=== PATIENT | male | born 1980 | race Caucasian/White ===

== ENCOUNTER 2016-08-03 16:53 | Emergency (ER) | payer BC ==
--- NOTE | 2016-08-03 18:38 | ED CLINICAL REPORT ---
Clinical Report - Physicians/Mid Levels [facility] [address] [place] [address] 08/03/2016 16:57 Patient: LILIBETH PAZ Time Seen: 17:19 Aug 03 2016. Arrived- By private vehicle. Historian- patient. CPT: ER phys charges level 4 (#[id number]). HISTORY OF PRESENT ILLNESS Chief Complaint: FLANK PAIN. It is described as "pain" and it is described as located in the right flank. At its maximum, severity described as severe. When seen in the E.D., severity described as moderate. Modifying factors- (Urinating makes it worse.). Not relieved by anything. This started about 6 months on and off; Hurts to urinate and urine is blocked at times. and is still present. No nausea, loss of appetite, vomiting or diarrhea. REVIEW OF SYSTEMS No constipation, black stools, hematemesis, difficulty with urination or urinary frequency. No fever, sore throat, chest pain, difficulty breathing or cough. No joint pain, skin rash or chills. The patient has had pain on urination and back pain. All systems otherwise negative, except as recorded above. PAST HISTORY History of 2 kidney stones in the past. The first was 19 mm and the second was 21 mm. Last stone was removed by urology about a year ago. Medications: None. Allergies: None. SOCIAL HISTORY Heavy tobacco smoker (cigarette)- 1 pack per day. Alcohol use. ADDITIONAL NOTES The nursing notes have been reviewed. PHYSICAL EXAM Vital Signs: 08/03/2016 17:09 BP: 147/98. HR: 86. RR: 18. O2 saturation: 100%. Temp: 98.2 F. Pain level now: 8/10. Appearance: Alert. Appears to be in pain. Patient in mild distress. Eyes: Pupils equal, round and reactive to light. Eyes normal inspection. ENT: Ears normal. Nose normal. Pharynx normal. Neck: Normal inspection. Neck supple. CVS: Normal heart rate and rhythm. Heart sounds normal. Pulses normal. Respiratory: No respiratory distress. Breath sounds normal. Chest nontender. Abdomen: Soft and nontender. Bowel sounds normal. Back: Normal inspection. No CVA tenderness. Skin: Skin warm. Normal skin color. No rash. Extremities: Extremities exhibit normal ROM. No lower extremity edema. Neuro: Oriented X 3. No motor deficit. No sensory deficit. LABS, X-RAYS, AND EKG Abdominal CT: Large 9mm kidney stone in the prostatic urethra. Abdominal CT performed without contrast. The study was independently viewed by me, interpreted by the radiologist and discussed with the radiologist. Laboratory Tests: UA-Culture if indicated: (SOHA: 08/03/2016 00:01) ( [id number] 08/03/2016 17:33) Final results Test Result Flag Units (Reference) URINE COLOR YELLOW URINE APPEARANCE CLEAR URINE GLUCOSE NEGATIVE (NEGATIVE) URINE BILIRUBIN NEGATIVE (NEGATIVE) URINE KETONE NEGATIVE (NEGATIVE) URINE SPECIFIC GRAVITY 1.020 (1.010-1.030) URINE PH 6.5 (5.0-8.0) URINE PROTEIN TRACE (NEGATIVE) URINE UROBILINOGEN 0.2 EU/dL (0.2-1.0) URINE NITRITE NEGATIVE (NEGATIVE) URINE BLOOD 2+ (NEGATIVE) URINE LEUK ESTERASE NEGATIVE (NEGATIVE) URINE RBC 10-25 rbc/hpf (0-1) URINE WBC 3-5 wbc/hpf (0-1) URINE EPITHELIAL CELLS RARE EPI/hpf (0-5) URINE BACTERIA TRACE (<1+) (NONE SEEN) URINE COMMENT CULT NOT INDICATED URINE CULTURES ARE SET-UP BASED ON THE FOLLOWING CRITERIA:POSITIVE NITRITEPOSITIVE LEUKOCYTE ESTERASEGREATER THAN 10 WHITE BLOOD CELLSMODERATE (2+) OR GREATER BACTERIA . PROGRESS AND PROCEDURES Course of Care: The patient has a large stone caught in the prostatic urethra. This will likely pass. He will strain his urine and follow-up with urology if not passing. We will cover him with antibiotics because of trace bacteriuria. Patient/family counseled. Disposition: Discharged. CLINICAL IMPRESSION Kidney stone stuck in the prostatic urethra. Mild bacteruria. INSTRUCTIONS Drink plenty of fluids. (Strain urine). Warnings: Further evaluation is necessary. GENERAL WARNINGS: Return or contact your physician immediately if your condition worsens or changes unexpectedly, if not improving as expected, or if other problems arise. Prescription Medications: Trimethoprim-Sulfamethoxazole DS: take 1 tablet orally every 12 hours for 7 days. Dispense fourteen (14). No refills. Follow-up: Follow up with a specialist in two days if not better. Call for the next available appointment. (Electronically signed by Lilibeth Bernal MD 08/03/2016 19:12)
--- NOTE | 2016-08-03 18:38 | ED ORDER SUMMARY ---
..... Patient: LILIBETH PAZ OrderSheet [facility] VisitID: [id number] [address] [place] [address] 36y, M Registration Date/Time: 08/03/2016 ORDER SHEET Weight: 90.7 kg (stated) Allergies: None GENERAL ORDERS: UA-Culture if indicated Urgent (17:13 08/03/2016 JBoardley R.N. per protocol) (Ack 17:14 Albert) (17:18 JBoardley R.N.) CT Abd/Pel wo Cont Urgent (17:18 08/03/2016 Keo ORTIZ) (Ack 17:26 Albert) (17:37 JBoardley R.N.) Urine Strainer (18:37 08/03/2016 Keo ORTIZ) (Ack 18:39 JBoardley R.N.) (18:42 JBoardley R.N.) MEDICATION ORDERS: IV FLUIDS: ORDER SHEET NOTES: [Electronically signed by Pranay Gonzalez R.N. (18:53 08/03/2016)] [Electronically signed by Lilibeth Bernal MD (19:12 08/03/2016)] [Electronically locked/signed by Pranay Gonzalez R.N. (18:53 08/03/2016)]
--- NOTE | 2016-08-03 18:38 | ED ORDER SUMMARY ---
..... Patient: LILIBETH PAZ OrderSheet [facility] VisitID: [id number] [address] [place] [address] 36y, M Registration Date/Time: 08/03/2016 ORDER SHEET Weight: 90.7 kg (stated) Allergies: None GENERAL ORDERS: UA-Culture if indicated Urgent (17:13 08/03/2016 JBoardley R.N. per protocol) (Ack 17:14 Albert) (17:18 JBoardley R.N.) CT Abd/Pel wo Cont Urgent (17:18 08/03/2016 Keo ORTIZ) (Ack 17:26 Albert) (17:37 JBoardley R.N.) Urine Strainer (18:37 08/03/2016 Keo ORTIZ) (Ack 18:39 JBoardley R.N.) (18:42 JBoardley R.N.) MEDICATION ORDERS: IV FLUIDS: ORDER SHEET NOTES: [Electronically signed by Pranay Gonzalez R.N. (18:53 08/03/2016)] [Electronically signed by Lilibeth Bernal MD (19:12 08/03/2016)] [Electronically locked/signed by Pranay Gonzalez R.N. (18:53 08/03/2016)]
--- NOTE | 2016-08-03 18:38 | ED NURSING NOTES ---
Clinical Report - Nurses [facility] [place] [address] [place] [address] 08/03/2016 16:57 Patient: LILIBETH PAZ TRIAGE Triage time 17:09. Acuity: LEVEL 3. Chief Complaint: PAINFUL URINATION and FLANK PAIN. 17:08/03/16. 17:08/03/16. Alert. No acute distress. --17:12 Pranay Gonzalez R.N. 17:08/03/16. BP: 147/98. HR: 86. RR: 18. O2 saturation: 100% on room air. Temp: 98.2 F (oral). Pain level now: 02/18. --17:12 Pranay Gonzalez R.N. Weight: 90.7 kg stated. Height/Length: 72 inches Per Patient. BMI: 27.1. --17:10 Pranay Gonzalez R.N. Medications None. --17:11 Pranay Gonzalez R.N. Medication/allergy information source: the patient. --17:12 Pranay Gonzalez R.N. Allergies None. --17:12 Pranay Gonzalez R.N. History Arrived by private vehicle. Historian: patient. Unaccompanied. Primary physician (LILIBETH RICHARDSON). 17:08/03/16. Onset. (6 months). Treatment EDUCATIONAL TECHNOLOGY COORDINATOR: None. PAST MEDICAL HX: Immunizations not up to date. SOCIAL HX: Current every day heavy tobacco smoker- less than 1 pack per day. Occasional alcohol use; consumes three beers a week. No drug use. No recent travel. No infectious disease exposure. No known contact with a sick individual. ABUSE ASSESSMENT: No report of abuse. FALL RISK ASSESSMENT: Fall risk assessment completed. No fall risk identified. NUTRITIONAL RISK ASSESSMENT: The nutritional risk assessment revealed no deficiencies. FUNCTIONAL ASSESSMENT: Functional assessment: no impairments noted. LEARNING NEEDS ASSESSMENT: The learning needs assessment revealed no barriers. SKIN INTEGRITY ASSESSMENT: Skin integrity risk assessment completed. No skin integrity risk identified. --17:12 Pranay Gonzalez R.N. PROBLEMS: Nephrolithiasis. --17:12 Pranay Gonzalez R.N. ADDITIONAL SURGERIES: Lithotripsy. --17:12 Pranay Gonzalez R.N. Assessment 17:08/03/16. --17:12 Pranay Gonzalez R.N. Interventions 17:08/03/16. 17:08/03/16. ID and allergy band on patient. To treatment room. --17:12 Pranay Gonzalez R.N. PHYSICAL ASSESSMENT 17:08/03/16. GENERAL / NEURO / PSYCH: Alert. Oriented X 4. Appears in no acute distress. RESPIRATORY: Respirations not labored. SKIN: Skin is warm and dry. --17:12 Pranay Gonzalez R.N. NURSING PROGRESS NOTES 17:08/03/16. The plan of care for this patient has been created. Patient gowned. Head of bed elevated. Reassurance given. Two patient identifiers checked. Call light placed in reach. Side rails up x 2. Bed placed in lowest position. Brakes of bed on. Brakes of chair on. --17:12 Pranay Gonzalez R.N. 17:08/03/16. Patient ready for evaluation- chart flagged and notification provided. --17:12 Pranay Gonzalez R.N. 17:13 08/03/16. Patient ID band checked for patient name and birthdate: patient confirmed. Clean catch urine collected with return of yellow-colored urine; sample sent to lab for urinalysis and culture. Specimen labeled in the presence of the patient. --17:13 Pranay Gonzalez R.N. 17:27 08/03/16. Patient transported to CT by stretcher with tech. --17:27 Pranay Gonzalez R.N. 17:37 08/03/16. Patient returned from CT by stretcher with tech. --17:37 Pranay Gonzalez R.N. 17:37 08/03/16. Patient informed about reason for wait and about plan of care. --17:37 Pranay Gonzalez R.N. 17:37 08/03/16. Patient waiting for CT results. --17:37 Pranay Gonzalez R.N. 18:09 08/03/16. --18:09 Pranay Gonzalez R.N. 18:08 08/03/16. BP: 131/85. HR: 73. RR: 14. O2 saturation: 99% on room air. Pain level now: 11/18. --18:09 Pranay Gonzalez R.N. DISPOSITION / DISCHARGE 18:44 08/03/16. Condition at departure: improved. The goals identified in the patient's plan of care were met. ( Gave pt urine strainer and specimen cup on DC, educated on how to use. Will provide kidney stone to PCP when it passes.). No learning barriers present. Discharge instructions provided and reviewed with the patient. Reviewed warnings. Reviewed medication(s). Treatments reviewed. Patient verbalized understanding. Written instructions provided in [place]. The patient was discharged by the physician. He was discharged home. He left the Emergency Department via private vehicle. Patient driving. FALL RISK ASSESSMENT: Fall risk assessment completed. No fall risk identified. --18:44 Pranay Gonzalez R.N. 18:42 08/03/16. BP: 134/75. HR: 77. RR: 14. O2 saturation: 99% on room air. Temp: 98.2 F. --18:44 Pranay Gonzalez R.N. 18:44 08/03/16. Departure time: 18:44. --18:44 Pranay Gonzalez R.N. Locked/Released at 08/03/2016 18:53 by Pranay Gonzalez R.N.
--- NOTE | 2016-08-03 18:58 | DIAGNOSTIC IMAGING REPORT ---
PROCEDURE: CT ABDOMEN/PELVIS W/O CONTRAST INDICATION: ABDOMINAL PAIN TECHNIQUE: Noncontrast axial images were obtained of the entire abdomen and pelvis with sagittal and coronal reformations. COMPARISON: None. FINDINGS: ABDOMEN: There are several nonobstructing right renal calculi (1 - 3 mm). Mild right hydroureteronephrosis without to distal calculus, likely due to recent passage of a calculus. Normal left kidney and ureter. Normal bladder. Lung bases are clear. Heart size is normal. There are several small gallbladder wall calcifications. Liver, pancreas, spleen and adrenal glands are normal. Normal abdominal aorta appear PELVIS: Normal appendix. 1 cm central prostate dense calcification. No pelvic mass, free fluid or suspicious osseous lesions IMPRESSION: 1. Mild right hydroureteronephrosis without obstructing distal calculus. However, there is a dense central prostate calcification suspicious for a urinary calculus 2. Several nonobstructing right renal calculi 3. Gallbladder wall calcifications 4. Results discussed with Dr. Bernal All CT scans at this facility use dose modulation, iterative reconstruction, and/or weight-based dosing when appropriate to reduce radiation dose to as low as reasonably achievable.
--- NOTE | 2016-08-03 19:12 | ED DISCHARGE INSTRUCTIONS ---
Patient: LILIBETH PAZ General Instructions [facility] VisitID: [id number] [address] [place] [address] 36y, M Registration Date/Time: 08/03/2016 Kidney stone stuck in the prostatic urethra. Mild bacteruria. INSTRUCTIONS Drink plenty of fluids. (Strain urine). Warnings: Further evaluation is necessary. GENERAL WARNINGS: Return or contact your physician immediately if your condition worsens or changes unexpectedly, if not improving as expected, or if other problems arise. Prescription Medications: Trimethoprim-Sulfamethoxazole DS: take 1 tablet orally every 12 hours for 7 days. Dispense fourteen (14). No refills. Follow-up: Follow up with a specialist in two days if not better. Call for the next available appointment. (Electronically signed by Lilibeth Bernal MD 08/03/2016 19:12)
--- NOTE | 2016-08-03 19:12 | ED MAR SUMMARY ---
..... Medication Administration Record [facility] [address], [place] [id number] Patient: LILIBETH PAZ Visit ID: [id number] 36y, M Weight: 90.7 kg Height/Length: 72 in BMI: 27.1 ALLERGIES: None
--- NOTE | 2016-08-03 19:12 | ED MED RECONCILIATION SUMMARY ---
Patient: LILIBETH PAZ Medication Reconciliation Report [facility] VisitID: [id number] [address] [place] [address] 36y, M Registration Date/Time: 08/03/2016 Weight: 90.7 kg Height/Length: 72 in. BMI: 27.1 ALLERGIES: None The patient's Home Medications are listed below: NONE. The source(s) of the original Home Medication information: patient The following Medications were given to the patient in the Emergency Department: None. The following Medications were prescribed to the patient: Trimethoprim-Sulfamethoxazole DS: take 1 tablet orally every 12 hours for 7 days. Dispense fourteen (14). No refills. -- Lilibeth Bernal MD
--- NOTE | 2016-08-03 19:12 | ED MED RECONCILIATION SUMMARY ---
Patient: LILIBETH PAZ Medication Reconciliation Report [facility] VisitID: [id number] [address] [place] [address] 36y, M Registration Date/Time: 08/03/2016 Weight: 90.7 kg Height/Length: 72 in. BMI: 27.1 ALLERGIES: None The patient's Home Medications are listed below: NONE. The source(s) of the original Home Medication information: patient The following Medications were given to the patient in the Emergency Department: None. The following Medications were prescribed to the patient: Trimethoprim-Sulfamethoxazole DS: take 1 tablet orally every 12 hours for 7 days. Dispense fourteen (14). No refills. -- Lilibeth Bernal MD
--- NOTE | 2016-08-03 19:12 | ED DISCHARGE INSTRUCTIONS ---
Patient: LILIBETH PAZ General Instructions [facility] VisitID: [id number] [address] [place] [address] 36y, M Registration Date/Time: 08/03/2016 Kidney stone stuck in the prostatic urethra. Mild bacteruria. INSTRUCTIONS Drink plenty of fluids. (Strain urine). Warnings: Further evaluation is necessary. GENERAL WARNINGS: Return or contact your physician immediately if your condition worsens or changes unexpectedly, if not improving as expected, or if other problems arise. Prescription Medications: Trimethoprim-Sulfamethoxazole DS: take 1 tablet orally every 12 hours for 7 days. Dispense fourteen (14). No refills. Follow-up: Follow up with a specialist in two days if not better. Call for the next available appointment. (Electronically signed by Lilibeth Bernal MD 08/03/2016 19:12)
--- NOTE | 2016-08-03 19:12 | ED MAR SUMMARY ---
..... Medication Administration Record [facility] [address] [place], [place] [id number] Patient: LILIBETH PAZ Visit ID: [id number] 36y, M Weight: 90.7 kg Height/Length: 72 in BMI: 27.1 ALLERGIES: None
== END 2016-08-03 18:44 | disposition home or self-care (01) ==
LOC: ED SRH 16:53 → EDBD 16:57 → ED SRH 18:44
DX: N21.1 Calculus in urethra (principal); N20.0 Calculus of kidney; N39.0 Urinary tract infection, site not specified; F17.210 Nicotine dependence, cigarettes, uncomplicated
CPT/HCPCS: 90004